=== PATIENT | female | born 1970 | race Two or more races ===

== ENCOUNTER 2018-02-04 23:55 | Emergency (ER) | payer MEDICAID ==
[~2018-02-04] VITALS: Ht 152.4 cm; Wt 63.6 kg
[~2018-02-04 23:55] MED LIST: IBUP-1222 PO; None per pt.; OXYC-302 PO
[2018-02-04 23:56] VITALS: BP 159/90
[2018-02-05] MEDS ORDERED: BACITRACIN ZINC OINT 500U/GM, 0.9 GM ONE (00:28)
[2018-02-05] MEDS ORDERED: DIPH,PERTUSS(ACELL),TET VAC/PF 0.5 ML IM-VACC ONE ×2 (00:29→00:30)
== END 2018-02-05 00:50 | disposition home or self-care (01) ==
LOC: ED 02-05 00:43
DX: S61.255A Open bite of left ring finger without damage to nail, initial encounter (principal); W53.11XA Bitten by rat, initial encounter; Y93.89 Activity, other specified; Y92.009 Unspecified place in unspecified non-institutional (private) residence as the place of occurrence of the external cause; Y99.8 Other external cause status
CPT/HCPCS: 90471; 90715

== ENCOUNTER 2020-09-20 16:39 | Emergency (ER) | payer MEDICAID ==
[~2020-09-20] VITALS: Ht 160 cm; Wt 58.1 kg
[2020-09-20 17:10] VITALS: BP 158/79
== END 2020-09-20 18:14 | disposition home or self-care (01) ==
LOC: ED 17:54
DX: K02.9 Dental caries, unspecified (principal); L03.211 Cellulitis of face; R22.0 Localized swelling, mass and lump, head
CPT/HCPCS: 99283

== ENCOUNTER 2020-09-22 17:24 | Emergency (ER) | payer MEDICAID ==
[~2020-09-22] VITALS: Ht 152.4 cm; Wt 57.4 kg
[2020-09-22 18:22] LABS: BASOPHILS % (AUTO) 1 % (0-1); EOSINOPHILS % (AUTO) 1 % (1-7); LYMPHOCYTES % (AUTO) 18 % (22-44); MEAN CORPUSCULAR HEMOGLOBIN 26.9 pg (27.0-34.8); MEAN PLATELET VOLUME 7.6 fL (7.4-10.4); MONOCYTES % (AUTO) 7 % (2-9); NEUTROPHILS % (AUTO) 74 % (42-75); PLATELET COUNT 336 x10^3/uL (130-400); RED BLOOD COUNT 5.25 x10^6/uL (3.82-5.3); RED CELL DISTRIBUTION WIDTH 13.1 % (9.6-15.2)
[2020-09-22 18:24] LABS: ALBUMIN 2.8 g/dL (3.4-5.0); ANION GAP 7 mmol/L (5-15); CHLORIDE 97 mmol/L (98-107); CREATININE 0.64 mg/dL (0.55-1.02)
[2020-09-22 18:25] LABS: MD NO
--- NOTE | 2020-09-22 19:13 | NUR ---
Pt to rm from lobby.
--- NOTE | 2020-09-22 20:18 | NUR ---
PT CAME IN CO OF LEFT FACE SWELLING, REDNESS AND PAIN. WAS SEEN IN ED 2 DAYS AGO FOR SAME. SENT HOME WITH ABX. PT STATES "ITS NOT GETTING ANY BETTER OR WORSE". PT RESTING IN GURNEY. CONNECTED TO MONITORING EQUIPMENT
[2020-09-22] MEDS ORDERED: BUPIVACAINE/PF-EPI 0.25% 1:200K SQ ONE (20:30)
[2020-09-22] MEDS ORDERED: LIDOCAINE-MPF 1%, 5ML INFIL ONE (20:30)
[2020-09-22 20:36] VITALS: BP 148/68
--- NOTE | 2020-09-22 20:36 | NUR ---
I AND D COMPLETE. PT TOLERATED WELL.
== END 2020-09-22 21:13 | disposition home or self-care (01) ==
LOC: ED 20:23
DX: K04.7 Periapical abscess without sinus (principal); K02.9 Dental caries, unspecified; K08.89 Other specified disorders of teeth and supporting structures
CPT/HCPCS: 36415; 41800; 70100; 80048; 82040; 85025; 99284